=== PATIENT | male | born 1980 | race Caucasian/White ===

== ENCOUNTER 2017-10-19 17:04 | Emergency (ER) | payer SELFPAY ==
[~2017-10-19] VITALS: Ht 170.2 cm; Wt 68.7 kg
[2017-10-19 17:40] VITALS: BP 132/77
[2017-10-19] MEDS ORDERED: ACETAMINOPHEN EXTRA STRENGTH 500 MG TAB ONE (17:44)
--- NOTE | 2017-10-19 18:38 | NUR ---
Patient discharged with v/s stable. Written and verbal after care instructions given and explained. Patient alert, oriented and verbalized understanding of instructions. Ambulatory with steady gait. All questions addressed prior to discharge. ID band removed. Patient advised to follow up with PMD. Rx of Zofran, Tamiflu, and Tesfreida Verdugo given. Patient educated on indication of medication including possible reaction and side effects. Opportunity to ask questions provided and answered. Addendum: 10/19/17 at 1840 by CHERRY Influenza swab completed per MD order.
--- NOTE | 2017-10-19 22:37 | NUR ---
I CALLED TO HAVE PT COME BACK TO [facility] FOR 2ND INFLUENZA SWAB-WAS NOT ABLE TO LEAVE MESSAGE BECAUSE PT CELL PHONE DID NOT HAVE V-MAIL SETUP AT THIS TIME.
== END 2017-10-19 18:38 | disposition home or self-care (01) ==
LOC: MED 17:04
DX: B34.9 Viral infection, unspecified (principal); I10 Essential (primary) hypertension
CPT/HCPCS: 36415; 87804; 99284